=== PATIENT | female | born 1970 | race Two or more races ===

== ENCOUNTER → 2024-10-29 | Outpatient (CLI) | payer MEDICAID, SELFPAY ==
--- NOTE | 2024-10-29 10:30 | XR_ITS ---
Examination: Breast ultrasound, unilateral, left complete Date and time of exam: October 29, 2024 1031 hours Comparison September 17, 2015 INDICATIONS: Patient states onset breast pain beginning several months ago, history left breast cyst aspiration 2008 Technique: Real-time urena scale ultrasonographic imaging performed left breast including all 4 quadrants as well as nipple retroareolar and axillary region. Findings: 2:00 cyst 4 x 5 x 5 mm 9:00 cyst 3 x 2 x 4 mm No solid nodules IMPRESSION: BI-RADS Category 2: Benign findings
--- NOTE | 2024-10-29 11:15 | XR_ITS ---
Examination: Diagnostic digital mammography, bilateral Computer aided detection 3-D breast Tomosynthesis, bilateral Date and time of exam: October 29, 2024 1306 hours Compared to mammograms dating to April 03, 2015 INDICATIONS: Onset left breast pain beginning several months ago Technique: Nonmagnified MLO, CC views of the breasts to been obtained, reconstructed from 3-D Tomosynthesis images. R2 computer aided detection program utilized for evaluation of suspicious masses and/or abnormal calcifications. 3-D Tomosynthesis images obtained. Findings: The breasts are heterogeneously dense, which may obscure small masses 12 mm focal asymmetry upper outer left breast Benign calcifications Impression: BI-RADS Category 0: Incomplete: Need additional imaging evaluation 12 mm focal asymmetry upper outer left breast, recommend follow-up spot tomographic views of this asymmetry.
== END | disposition home or self-care (01) ==
DX: R92.8 Other abnormal and inconclusive findings on diagnostic imaging of breast (principal); N64.89 Other specified disorders of breast
CPT/HCPCS: 76641; 77062; 77066; G0279

== ENCOUNTER → 2025-01-31 | Outpatient (CLI) | payer MEDICAID, SELFPAY ==
--- NOTE | 2025-01-31 13:00 | XR_ITS ---
Examination: Breast ultrasound, unilateral, left complete Date and time of exam: January 31, 2025 1331 hours INDICATIONS: Mammogram October 29, 2024 12 mm focal asymmetry upper outer left breast Technique: Real-time urena scale ultrasonographic imaging performed left breast including all 4 quadrants as well as nipple retroareolar and axillary region. Findings: 2:00 cyst 3 x 4 mm 4:00 cyst 4 x 4 millimeter 10:00 nodule circumscribed 3 x 4 mm IMPRESSION: BI-RADS Category 2: Benign findings
--- NOTE | 2025-01-31 13:30 | XR_ITS ---
Examination: Diagnostic digital mammography, unilateral, left Computer aided detection 3-D breast Tomosynthesis, unilateral Date and time of exam: 01/31/2025 at 1:49 PM INDICATIONS: Mammogram October 29, 2024 13 mm focal asymmetry upper outer left breast Technique: Nonmagnified MLO, CC views of the left breast have been obtained, reconstructed from 3-D Tomosynthesis images. R2 computer aided detection program utilized for evaluation of suspicious masses and/or abnormal calcifications. 3-D Tomosynthesis images obtained. Findings: The breast is heterogeneously dense, which may obscure small masses Breast biopsy marker upper outer left breast No suspicious nodules Left breast sonogram today demonstrates 10:00 circumscribed nodule 3 x 4 mm Impression: BI-RADS category 2: Benign findings Return to yearly follow-up mammography
== END | disposition home or self-care (01) ==
LOC: CDIM 12:59
DX: R92.322 Mammographic fibroglandular density, left breast (principal)
CPT/HCPCS: 76641; 77061; 77065; G0279